=== PATIENT | male | born 1975 | race Caucasian/White ===

== ENCOUNTER 2017-01-20 18:36 | Emergency (ER) | payer OTHER ==
[~2017-01-20] VITALS: Ht 185.4 cm; Wt 122.5 kg
[2017-01-20] MEDS ORDERED: ACET50TAOT PO (18:49)
[2017-01-20] MEDS ORDERED: ZOLO50TA PO (18:49)
[2017-01-20] MEDS ORDERED: CYCL10TA PO (18:49)
[2017-01-20] MEDS ORDERED: NAPR500T PO (18:49)
[2017-01-20] MEDS ORDERED: BUSP30TA PO (18:49)
[2017-01-20] MEDS ORDERED: KETOROLAC 60 MG/2 ML VIAL (J1885) IM ONE (21:15)
[2017-01-20] MEDS ORDERED: NORCO 5/325MG TABLET (BULK FOR ED) PO ONE (21:15)
[2017-01-20] MEDS ORDERED: NORCOTAB PO (21:27)
[2017-01-20 21:50] VITALS: BP 154/98
== END 2017-01-20 22:03 | disposition home or self-care (01) ==
LOC: M ED 19:38
DX: S29.012A Strain of muscle and tendon of back wall of thorax, initial encounter (principal); X58.XXXA Exposure to other specified factors, initial encounter; Y92.099 Unspecified place in other non-institutional residence as the place of occurrence of the external cause; Y93.9 Activity, unspecified; Y99.9 Unspecified external cause status; F43.10 Post-traumatic stress disorder, unspecified; M54.5 Low back pain; Z87.891 Personal history of nicotine dependence; Z79.899 Other long term (current) drug therapy
CPT/HCPCS: 96372; 99282; J1885

== ENCOUNTER → 2017-03-01 | Outpatient (REF) | payer OTHER ==
[~2017-03-01] MED LIST: ACET50TAOT PO; BUSP30TA PO; CYCL10TA PO; NAPR500T PO; NORCOTAB PO; ZOLO50TA PO
[2017-03-01 14:24] LABS: IMMOTILITY 67 %; NON PROGRESSIVE MOTILITY (c) 7 %; PROGRESSIVE MOTILITY (a) 26 % (>=32); TOTAL MOTILITY 33 % (>=40)
[2017-03-01 14:25] LABS: % NORMAL FORMS 5 % (>=4); SPERM# 558.9 M/Ejac (33-46); TOTAL FUNCTIONAL 18.1 M/Ejac.; TOTAL PROGRESSIVE SPERM 146.6 M/Ejac.
== END ==
LOC: M LAB REF 13:26
PROVIDERS: ATTEND Obstetrics & Gynecology
DX: N46.9 Male infertility, unspecified (principal)

== ENCOUNTER → 2018-07-30 | Outpatient (REF) | LOC: M SMT 13:54 | DX: Z02.71 Encounter for disability determination (principal) ==

== ENCOUNTER → 2020-12-26 | Outpatient (REF) | payer OTHER ==
[~2020-12-26] MED LIST changes: +ACET500T15 PO; -ACET50TAOT PO; +CYCL-707 PO; -CYCL10TA PO; +HYDR-3715 PO; +NAPR-837 PO; -NAPR500T PO; -NORCOTAB PO
[2020-12-26 11:16] LABS: SEMEN APPEARANCE OPAQUE (OPAQUE); SEMEN VOLUME 1.8 ml (2.0-5.0)
[2020-12-26 11:17] LABS: SEMEN VISCOSITY LIQUID (LIQUID); WBC CONCENTRATION <=1 M/ml (<=1 M/ml)
== END ==
LOC: M LAB REF 11:14
DX: Z30.8 Encounter for other contraceptive management (principal)

== ENCOUNTER → 2022-03-20 | Outpatient (REF) | LOC: M PLAIMG 11:50 | PROVIDERS: ATTEND Internal Medicine | DX: M25.78 Osteophyte, vertebrae (principal); M51.37 Other intervertebral disc degeneration, lumbosacral region ==

== ENCOUNTER → 2022-04-23 | Outpatient (CLI) | payer OTHER | LOC: M PLAIMG 09:32 | PROVIDERS: ATTEND Physician Assistant Medical | DX: M25.512 Pain in left shoulder (principal) ==

== ENCOUNTER 2023-04-06 08:33 | Emergency (ER) | payer OTHER ==
[~2023-04-06] VITALS: Ht 185.4 cm; Wt 124.9 kg
[2023-04-06 11:05] LABS: BASO % 0.2 % (0.0-1.0); EOS # 0.1 10^3/uL (0.0-0.5); EOS % 0.5 % (0.0-3.0); HEMATOCRIT 43.7 % (42.0-52.0); HEMOGLOBIN 15.2 g/dl (13.5-17.5); LYMPH # 1.8 10^3/uL (1.5-5.0); LYMPH % 12.3 % (24.0-44.0); MEAN CORPUSCULAR HEMOGLOBIN 29.3 pg (27.0-33.0); MEAN CORPUSCULAR HGB CONC 34.8 g/dl (32.0-36.5); MEAN CORPUSCULAR VOLUME 84.2 fl (80.0-96.0); MONO % 11.8 % (2.0-8.0); NEUTROPHILS # 11.1 10^3/uL (1.5-8.5); NEUTROPHILS % 74.9 % (36.0-66.0); PLATELET COUNT, AUTOMATED 289 10^3/uL (150-450); RED BLOOD COUNT 5.19 10^6/uL (4.30-6.10); WHITE BLOOD COUNT 14.8 10^3/uL (4.0-10.0)
[2023-04-06 11:15] LABS: ERYTHROCYTE SEDIMENTATION RATE > 130 mm/hr (0-15)
[2023-04-06 11:27] LABS: MONO # 1.8 10^3/uL (0.0-0.8)
[2023-04-06 11:35] LABS: ALBUMIN 3.6 G/DL (3.2-5.2); BILIRUBIN,DIRECT 0.2 MG/DL (<0.4); BILIRUBIN,TOTAL 0.5 MG/DL (0.3-1.2); C REACTIVE PROTEIN QUANTITATIV 15.2 MG/DL (<1.0); CALCIUM LEVEL 9.6 MG/DL (8.5-10.1); CREATININE FOR GFR 1.88 MG/DL (0.70-1.30); GLOMERULAR FILTRATION RATE 41.2 (>60); POTASSIUM SERUM 4.2 MMOL/L (3.5-5.1); TOTAL PROTEIN 7.9 G/DL (5.7-8.2)
[2023-04-06] MEDS ORDERED: NS 1,000 ML IV ONE (11:40)
[2023-04-06] MEDS ORDERED: MONT10TA97 (12:20)
[2023-04-06] MEDS ORDERED: OMEP40CA5 PO (12:20)
[2023-04-06] MEDS ORDERED: ROSU40TA4 PO (12:20)
[2023-04-06] MEDS ORDERED: METF500T13 (12:20)
[2023-04-06] MEDS ORDERED: CHOL20002 PO (12:20)
[2023-04-06] MEDS ORDERED: LISI10TA22 PO (12:20)
[2023-04-06] MEDS ORDERED: SILD100T PO (12:20)
[2023-04-06] MEDS ORDERED: MIRT1TAB17 PO (12:20)
[2023-04-06] MEDS ORDERED: MELO15TA28 PO (12:20)
[2023-04-06] MEDS ORDERED: CETI-24 (12:20)
[2023-04-06] MEDS ORDERED: CLON0.5T17 PO (12:20)
[2023-04-06] MEDS ORDERED: GABA-282 PO (12:20)
[2023-04-06] MEDS ORDERED: LOPI600T PO (12:20)
[2023-04-06] MEDS ORDERED: BUPR75TA5 PO (12:21)
[2023-04-06] MEDS ORDERED: ceFAZolin SOD 2 GM in IV 1 EA IV ONE (14:15)
[2023-04-06 15:10] LABS: AMORPHOUS SEDIMENT SMALL (NEGATIVE); APPEARANCE, URINE CLOUDY (CLEAR); BACTERIA, URINE AUTO NEGATIVE (NEGATIVE); BILIRUBIN, URINE AUTO NEGATIVE (NEGATIVE); BLOOD, URINE BLOOD 1+ (NEGATIVE); COLOR, URINE YELLOW (YELLOW); GLUCOSE, URINE (UA) AUTO NEGATIVE (NEGATIVE); GRANULAR CAST, URINE AUTO 6 /LPF; KETONE, URINE AUTO NEGATIVE (NEGATIVE); LEUKOCYTE ESTERASE, URINE AUTO NEGATIVE (NEGATIVE); MUCUS, URINE SMALL (NEGATIVE); NITRITE, URINE AUTO NEGATIVE (NEGATIVE); PROTEIN, URINE AUTO 2+ mg/dL (NEGATIVE); RBC, URINE AUTO 0 /HPF (0-3); SPECIFIC GRAVITY URINE AUTO 1.011 (1.002-1.035); SQUAMOUS EPITHELIAL CELL UR AU 3 /HPF (0-6); UROBILINOGEN, URINE AUTO 0.2 mg/dL (0.0-2.0); WBC, URINE AUTO 2 /HPF (0-3)
[2023-04-06] MEDS ORDERED: CEPH500C PO (15:33)
[2023-04-06 15:37] VITALS: BP 126/74; TEMP 96.3; O2SAT 99
[2023-04-10 09:10] LABS: ANTINUCLEAR ANTIBODIES DIRECT Negative (Negative)
== END 2023-04-06 15:49 | disposition home or self-care (01) ==
LOC: M ED 08:33
DX: L03.114 Cellulitis of left upper limb (principal); E86.0 Dehydration; N18.9 Chronic kidney disease, unspecified; K21.9 Gastro-esophageal reflux disease without esophagitis; F43.10 Post-traumatic stress disorder, unspecified; F32.A Depression, unspecified; Z79.1 Long term (current) use of non-steroidal anti-inflammatories (NSAID); Z79.811 Long term (current) use of aromatase inhibitors; Z79.891 Long term (current) use of opiate analgesic; Z79.899 Other long term (current) drug therapy
CPT/HCPCS: 36415; 80048; 80076; 81001; 83605; 85025; 85652; 86038; 86140; 86431; 87040; 93971; 96361; 96365; 99284; J0690